=== PATIENT | female | born 1950 | race Caucasian/White ===

== ENCOUNTER 2020-06-16 09:55 | Day surgery (SDC) | payer MEDICARE, BC ==
[~2020-06-16 09:55] MED LIST: Lactated Ringers 1,000 ML IV SCH; Sodium Chloride 0.9% 10 ML SDV IV PRN; Sodium Chloride 0.9% 10 ML Syringe FLUSH PRN; Sodium Chloride 0.9% 2.5 ML Syringe FLUSH PRN
--- NOTE | 2020-06-16 10:29 | PCM.PREANE ---
Preanesthetic Assessment - Anesthesia/Transfusion/Family Hx Anesthesia History: Prior Anesthesia Without Reaction Family History of Anesthesia Reaction: No Transfusion History: No Prior Transfusion(s) - Review of Systems General: No Symptoms Pulmonary: No Symptoms Cardiovascular: No Symptoms Gastrointestinal: No Symptoms Neurological: No Symptoms Other: Reports: None - Physical Assessment NPO Status Date: 06/16/20 NPO Status Time: 00:01 Height: 5 ft 6 in Weight: 222 lb ASA Class: 2 Mental Status: Alert & Oriented x3 Airway Class: Mallampati = 2 Dentition: Reports: Normal Dentition ROM/Head Extension: Full Lungs: Clear to Auscultation, Normal Respiratory Effort Cardiovascular: Regular Rate, Regular Rhythm - Allergies Allergies/Adverse Reactions: Allergies Allergy/AdvReac Type Severity Reaction Status Date / Time Sulfa (Sulfonamide Allergy Hives Verified 06/13/20 12:38 Antibiotics) - Anesthesia Plan Pre-Op Medication Ordered: None - Acknowledgements Anesthesia Type Planned: General Anesthesia Pt an Appropriate Candidate for the Planned Anesthesia: Yes Alternatives and Risks of Anesthesia Discussed w Pt/Guardian: Yes Pt/Guardian Understands and Agrees with Anesthesia Plan: Yes Additional Comments: npo htn no cv problems obesity bmi 36 tob none etoh occ par no questions PreAnesthesia Questionnaire HEENT History: Reports: Cataract, Other (See Below) Other HEENT History: wears glasses Cardiovascular History: Reports: Hypertension Respiratory History: Reports: None Gastrointestinal History: Reports: Colon Polyp, Other (See Below) Other Gastrointestinal History: occasional heartburn- takes Tums Genitourinary History: Reports: None 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 Musculoskeletal History: Reports: None Neurological History: Reports: None Psychiatric History: Reports: None Endocrine/Metabolic History: Reports: Obesity/BMI 30+ Hematologic History: Reports: None Immunologic History: Reports: None Oncologic (Cancer) History: Reports: None Dermatologic History: Reports: None - Infectious Disease History Infectious Disease History: Reports: None - Past Surgical History Head Surgeries/Procedures: Reports: None HEENT Surgical History: Reports: Cataract Surgery, Other (See Below) Other HEENT Surgeries/Procedures: bilateral Tympanoplasty Cardiovascular Surgical History: Reports: None GI Surgical History: Reports: Colonoscopy Female Surgical History: Reports: None Endocrine Surgical History: Reports: None Musculoskeletal Surgical History: Reports: Other (See Below) Other Musculoskeletal Surgeries/Procedures:: repair of median nerve - SUBSTANCE USE Tobacco Use Status *Q: Never Tobacco User Days Per Week of Alcohol Use: 3 Recreational Drug Use History: No - HOME MEDS Home Medications: Home Meds amLODIPine [Norvasc] 5 mg PO BEDTIME 11/17/14 [History] Ascorbic Acid [Vitamin C] 1,000 mg PO DAILY 06/13/20 [History] Cholecalciferol (Vitamin D3) [Vitamin D3] 5,000 unit PO DAILY 06/13/20 [History] Propylene Glycol/PEG 400/Pf [Systane 0.3-0.4% Eye Drop] 1 drop EYEBOTH ASDIRECTED PRN 06/13/20 [History] Zinc 25 mg PO DAILY 06/13/20 [History] - CURRENT (IN HOUSE) MEDS Current Meds: Current Medications Lactated Ringer's (Ringers, Lactated) 1,000 mls @ 125 mls/hr IV ASDIRECTED VLADIMIR Sodium Chloride (Sodium Chloride 0.9% 10 Ml Syringe) 10 ml FLUSH ASDIRECTED PRN PRN Reason: Keep Vein Open Sodium Chloride (Sodium Chloride 0.9% 2.5 Ml Syringe) 2.5 ml FLUSH ASDIRECTED PRN PRN Reason: Keep Vein Open Sodium Chloride (Sodium Chloride 0.9% 10 Ml Syringe) 10 ml FLUSH ASDIRECTED PRN PRN Reason: Keep Vein Open Sodium Chloride (Sodium Chloride 0.9% 2.5 Ml Syringe) 2.5 ml FLUSH ASDIRECTED PRN PRN Reason: Keep Vein Open Sodium Chloride (Sodium Chloride 0.9% 10 Ml Sdv) 10 ml IV ASDIRECTED PRN PRN Reason: IV Use
[2020-06-16] MEDS ORDERED: Propofol 200 MG/20 ML SDV ONE (11:09)
--- NOTE | 2020-06-16 12:25 | PCM.OPNOTE ---
- General Post-Op/Procedure Note Date of Surgery/Procedure: 06/16/20 Operative Procedure(s): Colonoscopy with biposy and polypectomy Findings: Large irregular mass @ 10cm (sigmoid rectum junction), sigmoid colon polyp, transverse colon polyp x 2 Pre Op Diagnosis: History of colon polyps Post-Op Diagnosis: Transverse colon polyp x 2, diverticulosis, sigmoid colon polyp, sigmoid colon mass Anesthesia Technique: MAC Primary Surgeon: Winnie Patel Condition: Good
--- NOTE | 2020-06-16 12:43 | PCM.POSTAN ---
POST ANESTHESIA ASSESSMENT - MENTAL STATUS Mental Status: Alert (no anesthetic problems), Oriented - VITAL SIGNS Vital Signs: Last Vital Signs Temp 97.7 F 06/16/20 10:05 Pulse 77 06/16/20 12:38 Resp 13 06/16/20 12:38 BP 156/75 H 06/16/20 12:38 Pulse Ox 99 06/16/20 12:38 - RESPIRATORY Respiratory Status: Respiratory Rate WNL, Airway Patent, O2 Saturation Stable - CARDIOVASCULAR CV Status: Pulse Rate WNL, Blood Pressure Stable - GASTROINTESTINAL GI Status: No Symptoms - POST OP HYDRATION Hydration Status: Adequate & Stable
--- NOTE | 2020-06-16 13:40 | PCM48HPAN ---
Post Anesthesia Note - EVALUATION WITHIN 48HRS OF ANESTHETIC Vital Signs in Normal Range: Yes Patient Participated in Evaluation: Yes Respiratory Function Stable: Yes Airway Patent: Yes Cardiovascular Function Stable: Yes Hydration Status Stable: Yes Pain Control Satisfactory: Yes Nausea and Vomiting Control Satisfactory: Yes Mental Status Recovered: Yes Vital Signs: Last Vital Signs Temp 36.5 C 06/16/20 10:05 Pulse 77 06/16/20 12:38 Resp 13 06/16/20 12:38 BP 156/75 H 06/16/20 12:38 Pulse Ox 99 06/16/20 12:38 - COMMENTS/OBSERVATIONS Free Text/Narrative:: Doing well, ready for discharge.
[2020-06-16 14:12] VITALS: BP 146/74; PULSE 74
--- NOTE | 2020-06-17 19:38 | OR ---
SURGEON: WINNIE PATEL MD DATE OF PROCEDURE: 06/16/2020 PREOPERATIVE DIAGNOSIS: History of colon polyps. POSTOPERATIVE DIAGNOSES: 1. Sigmoid colon polyp x1. 2. Transverse colon polyps x2. 3. Sigmoid colon mass at 10 cm. PROCEDURE PERFORMED: Diagnostic colonoscopy with polypectomy and biopsy. PRIMARY SURGEON: Winnie Patel MD ANESTHESIA: MAC. INSTRUMENT USED: Olympus colonoscope. EXTENT OF EXAM: To the cecum. PREPARATION: Good. LIMITATIONS: None. INDICATIONS FOR EXAMINATION: The patient is a 69-year-old female with a history of polyps. She is here for her 5 year followup scope. I explained the procedure, expected perioperative course, and the risks. She verbalized understanding and wishes to proceed. PROCEDURE IN DETAIL: The patient was brought to the endoscopy suite and placed in the left lateral decubitus position. A time-out was completed verifying the patient's name, age, date of , allergies, and procedure to be performed. Monitored anesthesia care was induced and continuous oxygen was provided via nasal cannula throughout the procedure. After adequate sedation was achieved, a digital rectal exam was performed. This exam was within normal limits. A well-lubricated colonoscope was inserted in the rectum and advanced under direct visualization to the level of the cecum. The cecum was identified by both visual and anatomic landmarks. A photograph was taken the cecal cap; however, I was unable to retroflex the scope within the cecum. The scope was then fully withdrawn while examining the color, texture, anatomy, and integrity of mucosa from the cecum to the anal canal. In the midportion of the transverse colon, the patient was noted to have 2 sessile polyps. These were removed in piecemeal fashion using cold biopsy forceps. In the mid sigmoid colon, the patient was noted to have another sessile small polyp. This was removed using cold biopsy forceps in piecemeal fashion. The patient was noted to have diverticulosis within the sigmoid colon as well. At the rectosigmoid junction at approximately 10 cm from the anus, the patient was noted to have a large sessile irregular-appearing mass. Multiple photographs of this were taken. Biopsies were taken and sent to Pathology, labeled as sigmoid colon mass. The scope was then brought into the rectum and retroflexed to allow visualization of the anal canal opening. This appeared normal, and a photograph taken. The scope was then straightened out and fully withdrawn. The cecum to anus time was 22 minutes. The patient tolerated the procedure well and was transferred to the PACU in stable condition. ENDOSCOPIC DIAGNOSES: 1. Sigmoid colon polyp x1. 2. Transverse colon polyps x2. 3. Sigmoid colon mass at 10 cm. RECOMMENDATIONS: I obtained a CEA level in the postoperative care area. This was mildly elevated at 4.8. I explained the intraoperative findings to the patient and showed her the pictures. I am concerned that this maybe a colon cancer. I will follow up on the biopsy results and discuss the next steps in treatment with her in clinic next week. ALANNA KAUR /[id number]
== END 2020-06-16 13:40 | disposition home or self-care (01) ==
LOC: MW.SDS 09:55
PROVIDERS: ATTEND Surgery
DX: C18.7 Malignant neoplasm of sigmoid colon (principal); D12.3 Benign neoplasm of transverse colon; D12.5 Benign neoplasm of sigmoid colon; K57.30 Diverticulosis of large intestine without perforation or abscess without bleeding; L29.0 Pruritus ani; L29.3 Anogenital pruritus, unspecified; I10 Essential (primary) hypertension; R73.03 Prediabetes; E66.9 Obesity, unspecified; Z68.36 Body mass index [BMI] 36.0-36.9, adult; Z88.2 Allergy status to sulfonamides; Z79.899 Other long term (current) drug therapy; Z86.010 Personal history of colon polyps; Z98.890 Other specified postprocedural states
CPT/HCPCS: 36415; 45380; 82378; 88305; J2704; J7120; 00811

== ENCOUNTER 2021-02-21 06:29 | Day surgery (SDC) | payer MEDICARE, BC ==
[~2021-02-21 06:29] MED LIST changes: -Sodium Chloride 0.9% 10 ML SDV IV PRN; +Sodium Chloride 0.9% 20 ML SDV IV PRN; +ceFAZolin 2 GM in Premix Bag 1 BAG IV ONE
--- NOTE | 2021-02-21 07:07 | PCM.PREANE ---
Preanesthetic Assessment - Procedure Proposed Procedure: Port-a-cath placement - Anesthesia/Transfusion/Family Hx Anesthesia History: Prior Anesthesia Without Reaction Family History of Anesthesia Reaction: No Transfusion History: No Prior Transfusion(s) - Review of Systems General: No Symptoms Pulmonary: No Symptoms Cardiovascular: No Symptoms (HTN) Gastrointestinal: No Symptoms (h/o Colorectal CA s/p partial resection and ileostomy) Neurological: No Symptoms Other: Reports: None - Physical Assessment NPO Status Date: 02/20/21 NPO Status Time: 22:00 Vital Signs: Last Vital Signs Temp 97.7 F 02/21/21 06:52 Pulse 98 02/21/21 06:52 Resp 14 02/21/21 06:52 BP 124/84 02/21/21 06:52 Pulse Ox 96 02/21/21 06:52 Height: 5 ft 6 in Weight: 93.44 kg ASA Class: 2 Mental Status: Alert & Oriented x3 Airway Class: Mallampati = 3 Dentition: Reports: Normal Dentition Thyro-Mental Finger Breadths: 3 Mouth Opening Finger Breadths: 3 ROM/Head Extension: Full Lungs: Clear to Auscultation, Normal Respiratory Effort Cardiovascular: Regular Rate, Regular Rhythm - Allergies Allergies/Adverse Reactions: Allergies Allergy/AdvReac Type Severity Reaction Status Date / Time Sulfa (Sulfonamide Allergy Hives Verified 02/15/21 09:10 Antibiotics) - Acknowledgements Anesthesia Type Planned: General Anesthesia Pt an Appropriate Candidate for the Planned Anesthesia: Yes Alternatives and Risks of Anesthesia Discussed w Pt/Guardian: Yes Pt/Guardian Understands and Agrees with Anesthesia Plan: Yes PreAnesthesia Questionnaire HEENT History: Reports: Cataract, Other (See Below) Other HEENT History: wears glasses Cardiovascular History: Reports: Hypertension Respiratory History: Reports: None Gastrointestinal History: Reports: Colon Polyp, Diverticulosis, Other (See Below) Other Gastrointestinal History: rectal cancer-stage III Genitourinary History: Reports: None 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 Musculoskeletal History: Reports: None Neurological History: Reports: None Psychiatric History: Reports: None Endocrine/Metabolic History: Reports: Obesity/BMI 30+ Hematologic History: Reports: None Immunologic History: Reports: None Oncologic (Cancer) History: Reports: Colon Dermatologic History: Reports: None - Infectious Disease History Infectious Disease History: Reports: None - Past Surgical History Head Surgeries/Procedures: Reports: None HEENT Surgical History: Reports: Cataract Surgery, Other (See Below) Other HEENT Surgeries/Procedures: left ear surgery Cardiovascular Surgical History: Reports: None Respiratory Surgical History: Reports: None GI Surgical History: Reports: Colon, Colonoscopy, Colostomy Other GI Surgeries/Procedures: laparoscopic proctocolectomy with diverting ileostomy Female Surgical History: Reports: None Endocrine Surgical History: Reports: None Neurological Surgical History: Reports: None Musculoskeletal Surgical History: Reports: Other (See Below) Other Musculoskeletal Surgeries/Procedures:: repair of median nerve-left wrist Oncologic Surgical History: Reports: Other (See Below) Other Oncologic Surgeries/Procedures: colon resection with diverting ileostomy Dermatological Surgical History: Reports: None - SUBSTANCE USE Tobacco Use Status *Q: Never Tobacco User - HOME MEDS Home Medications: Home Meds amLODIPine [Norvasc] 5 mg PO BEDTIME 11/17/14 [History] Propylene Glycol/PEG 400/Pf [Systane 0.3-0.4% Eye Drop] 1 drop EYEBOTH ASDIRECTED PRN 06/13/20 [History] Acetaminophen [Tylenol Extra Strength] 2 tab PO ASDIRECTED PRN 02/15/21 [History] Lactose-Reduced Food [Ensure] 1 dose PO DAILY 02/15/21 [History] - CURRENT (IN HOUSE) MEDS Current Meds: Current Medications Lactated Ringer's (Ringers, Lactated) 1,000 mls @ 125 mls/hr IV ASDIRECTED VLADIMIR Sodium Chloride (Sodium Chloride 0.9% 2.5 Ml Syringe) 2.5 ml FLUSH ASDIRECTED PRN PRN Reason: Keep Vein Open Sodium Chloride (Sodium Chloride 0.9% 20 Ml Sdv) 10 ml IV ASDIRECTED PRN PRN Reason: IV Use Sodium Chloride (Sodium Chloride 0.9% 10 Ml Syringe) 10 ml FLUSH ASDIRECTED PRN PRN Reason: Keep Vein Open Discontinued Medications Cefazolin Sodium/Dextrose 2 gm (/ Premix) 50 mls @ 100 mls/hr IV ONETIME ONE Stop: 02/20/21 12:39
[2021-02-21] MEDS ORDERED: Iopamidol 408 MG/ML 20 ML SDV ONE (07:20)
[2021-02-21] MEDS ORDERED: Bupivacaine 0.5% 10 ML SDV ONE (07:20)
[2021-02-21] MEDS ORDERED: Octyl 2-Cyanoacrylate 1 Tube ONE (07:20)
[2021-02-21] MEDS ORDERED: Heparin Sodium 100 Units/ML 3 ML Syringe ONE (07:20)
[2021-02-21] MEDS ORDERED: Dexamethasone 4 MG/ML 5 ML MDV ONE (07:29)
[2021-02-21] MEDS ORDERED: fentaNYL 100 MCG/2 ML SDV ONE (07:29)
[2021-02-21] MEDS ORDERED: Midazolam 1 MG/ML 2 ML SDV ONE (07:29)
[2021-02-21] MEDS ORDERED: Propofol 200 MG/20 ML SDV ONE (07:29)
[2021-02-21] MEDS ORDERED: Ondansetron 4 MG/2 ML SDV ONE (07:29)
[2021-02-21] MEDS ORDERED: Promethazine 25 MG/ML SDV ONE (07:44)
--- NOTE | 2021-02-21 09:16 | PCM.OPNOTE ---
- General Post-Op/Procedure Note Date of Surgery/Procedure: 02/21/21 Operative Procedure(s): Right internal jugular port a cath placement Findings: Right internal jugular port a cath placement Pre Op Diagnosis: Rectal cancer Post-Op Diagnosis: same Anesthesia Technique: General LMA, Local Primary Surgeon: Winnie Patel Fluid Replacement, Intraop: 700 EBL in mLs: 5 Condition: Good
--- NOTE | 2021-02-21 09:18 | PCM.POSTAN ---
POST ANESTHESIA ASSESSMENT - MENTAL STATUS Mental Status: Somnolent - VITAL SIGNS Vital Signs: Last Vital Signs Temp 97.7 F 02/21/21 06:52 Pulse 98 02/21/21 06:52 Resp 14 02/21/21 06:52 BP 124/84 02/21/21 06:52 Pulse Ox 96 02/21/21 06:52 - RESPIRATORY Respiratory Status: Respiratory Rate WNL, Airway Patent, O2 Saturation Stable - CARDIOVASCULAR CV Status: Pulse Rate WNL, Blood Pressure Stable - GASTROINTESTINAL GI Status: No Symptoms - PAIN Free Text/Narrative:: Resting comfortably - POST OP HYDRATION Hydration Status: Adequate & Stable
--- NOTE | 2021-02-21 09:29 | PCM48HPAN ---
Post Anesthesia Note - EVALUATION WITHIN 48HRS OF ANESTHETIC Vital Signs in Normal Range: Yes Patient Participated in Evaluation: Yes Respiratory Function Stable: Yes Airway Patent: Yes Cardiovascular Function Stable: Yes Hydration Status Stable: Yes Pain Control Satisfactory: Yes Nausea and Vomiting Control Satisfactory: Yes Mental Status Recovered: Yes Vital Signs: Last Vital Signs Temp 42.8 F L 02/21/21 09:11 Pulse 70 02/21/21 09:17 Resp 13 02/21/21 09:17 BP 86/46 L 02/21/21 09:17 Pulse Ox 99 02/21/21 09:17 - COMMENTS/OBSERVATIONS Free Text/Narrative:: Pt doing well post-op. VSS. No apparent anesthetic complications. Dr. Ant Saldana
--- NOTE | 2021-02-21 10:01 | OR ---
SURGEON: WINNIE PATEL MD DATE OF PROCEDURE: 02/21/2021 PREOPERATIVE DIAGNOSIS: Rectal cancer. POSTOPERATIVE DIAGNOSIS: Rectal cancer. PROCEDURE PERFORMED: Right internal jugular Port-A-Cath placement. PRIMARY SURGEON: Winnie Patel MD ANESTHESIA: General LMA, local. FLUIDS: 700 mL crystalloid. ESTIMATED BLOOD LOSS: 5 mL. FINDINGS: Uncomplicated placement of a right internal jugular Port-A-Cath. COMPLICATIONS: None. INDICATIONS: The patient is a 70-year-old female who has rectal cancer. She is in need of a Port-A-Cath for chemotherapy. I explained the procedure, expected perioperative course, and the risks. She verbalized understanding and wishes to proceed. PROCEDURE IN DETAIL: The patient was brought into the OR and placed on the OR table in supine position. A time-out was completed verifying the patient's name, age, date of , allergies, and procedure to be performed. An ultrasound was used to verify the anatomy of the right side of the neck. General LMA anesthesia was induced. A shoulder roll was placed behind the patient's shoulders, and both arms were tucked to the side. The neck and chest were prepped and draped in usual standard fashion. The patient was placed into Trendelenburg position. Using a sterile ultrasound probe, I re-identified the vascular anatomy of the right side of the neck. I anesthetized the area overlying the right internal jugular vein with 0.5% Marcaine plain mixed with 1% lidocaine plain in a 1:1 mixture. I also anesthetized the tunneling tract as well as the anterior chest wall on the right side with the same mixture. A #11 blade was used to make a joanna in the skin overlying the right internal jugular vein. Using ultrasound guidance, a needle was placed into the right internal jugular vein. A good return of venous blood was noted. A guidewire was placed down the vein into the superior vena cava. This was confirmed using intraoperative fluoro. The guidewire was then secured to the chest wall site, and I turned my attention to the right anterior chest wall. Two fingerbreadths below the right lateral clavicle, I chose my site for the Port-A-Cath. A #15 blade was used to make a 3- 4 cm incision on the skin. Cautery was used to dissect down to the level of subcutaneous fat, and I created a subcutaneous pocket for the port to rest in. I then used a tunneling device to tunnel the catheter tubing from the chest wall site up to the neck insertion site. A vascular sheath and dilator were then placed over the guidewire, and using fluoroscopic guidance, I dilated up my vascular tract. The guidewire and dilator were removed leaving the vascular sheath in place. The catheter tubing was placed down this vascular sheath into the superior vena cava. The vascular sheath was peeled away. I then pulled the catheter tubing into the distal SVC. An x-ray of this was taken and saved. The catheter tubing was then accessed distally and had a good return of venous blood. The catheter tubing was flushed with injectable saline. I then trimmed the catheter tubing to 22 cm and placed it on the Port-A-Cath device. The port was then placed into the chest wall. I accessed the Port-A-Cath device and had a good return of venous blood. The port and catheter tubing were then locked with 4 mL of heparinized saline. The catheter was secured on either side using interrupted 2-0 Prolene sutures. The chest wall pocket was then closed with a running 3-0 Vicryl suture in the subcutaneous fat layer, and the skin was closed with a running 4-0 Monocryl stitch. The insertion site on the neck was closed with an interrupted 4-0 Monocryl suture. Dermabond and sterile dressings were applied. The patient tolerated the procedure well, was flattened, extubated, taken to PACU, and a chest x-ray taken there. This chest x-ray shows no acute complications. The patient tolerated the procedure well. All counts were complete and correct at the end of the case. ALANNA KAUR /[id number] RAMBO
[2021-02-21 10:05] VITALS: BP 134/62; PULSE 64
--- NOTE | 2021-02-21 10:18 | CR ---
INDICATION: Post port placement. COMPARISON: 06/23/2020 TECHNIQUE: Single-view portable study FINDINGS: TUBES AND LINES: Right IJ port ending in the SVC distally HEART AND MEDIASTINUM: The heart size is normal. The mediastinal contour appears normal for patient age. LUNGS AND PLEURAL SPACES: The lungs appear normal.The pleural spaces are unremarkable. OSSEOUS STRUCTURES: Age-appropriate appearance. No acute focal finding. IMPRESSION: Right IJ port ending in the distal SVC. No pleural effusion or pneumothorax. Dictated by Stone Irby MD @ 02/21/2021 10:16:47 AM (Electronically Signed)
--- NOTE | 2021-02-21 13:39 | CR ---
HISTORY: Port placement. TECHNIQUE: Intraoperative fluoroscopy by surgical service. 23 seconds fluoroscopy time. One image. FINDINGS: Port with catheter tip in the low SVC. Dictated by Redd Gonzales MD @ 02/21/2021 1:39:01 PM (Electronically Signed)
== END 2021-02-21 10:23 | disposition home or self-care (01) ==
LOC: MW.SDS 06:29
PROVIDERS: ATTEND Surgery
DX: C20 Malignant neoplasm of rectum (principal); C77.5 Secondary and unspecified malignant neoplasm of intrapelvic lymph nodes; J93.83 Other pneumothorax; I10 Essential (primary) hypertension; E55.9 Vitamin D deficiency, unspecified; Z88.2 Allergy status to sulfonamides; Z98.890 Other specified postprocedural states; Z79.899 Other long term (current) drug therapy
CPT/HCPCS: 36561; 71045; 76000; A9270; C1788; J0690; J1100; J1642; J2250; J2405; J2704; J3010; J3490; J7120; 00532; Q9966

== ENCOUNTER 2022-01-04 10:42 | Day surgery (SDC) | payer MEDICARE, BC ==
[~2022-01-04 10:42] MED LIST changes: -ceFAZolin 2 GM in Premix Bag 1 BAG IV ONE
[2022-01-04] MEDS ORDERED: Propofol 200 MG/20 ML SDV ONE (11:37)
[2022-01-04] MEDS ORDERED: Midazolam 1 MG/ML 2 ML SDV ONE (11:40)
[2022-01-04] MEDS ORDERED: fentaNYL 100 MCG/2 ML SDV ONE (11:40)
[2022-01-04] MEDS ORDERED: Lidocaine 1% 50 ML MDV ONE (11:50)
[2022-01-04] MEDS ORDERED: Bupivacaine 0.5% 30 ML SDV ONE (11:50)
[2022-01-04] MEDS ORDERED: Lidocaine 1% 20 ML MDV ONE (11:51)
[2022-01-04] MEDS ORDERED: cefOXitin 1 GM Vial ONE (11:57)
[2022-01-04] MEDS ORDERED: Phenylephrine HCl In 0.9% NaCl 1 MG/10 ML Vial ONE (12:32)
[2022-01-04] MEDS ORDERED: ePHEDrine 50 MG/ML SDV ONE (12:32)
[2022-01-04 13:32] VITALS: BP 128/61; PULSE 78
== END 2022-01-04 13:20 | disposition home or self-care (01) ==
LOC: MW.SDS 10:42
PROVIDERS: ATTEND Surgery
DX: Z12.11 Encounter for screening for malignant neoplasm of colon (principal); Z45.2 Encounter for adjustment and management of vascular access device; K57.30 Diverticulosis of large intestine without perforation or abscess without bleeding; J30.9 Allergic rhinitis, unspecified; I10 Essential (primary) hypertension; G47.00 Insomnia, unspecified; E55.9 Vitamin D deficiency, unspecified; E66.9 Obesity, unspecified; M85.80 Other specified disorders of bone density and structure, unspecified site; Z88.0 Allergy status to penicillin; Z85.048 Personal history of other malignant neoplasm of rectum, rectosigmoid junction, and anus; Z79.899 Other long term (current) drug therapy; Z98.890 Other specified postprocedural states; Z95.828 Presence of other vascular implants and grafts; Z68.31 Body mass index [BMI] 31.0-31.9, adult; Z88.2 Allergy status to sulfonamides
CPT/HCPCS: 36590; 45378; J0694; J2250; J2704; J3010; J3490; J7120; 00811; 99100; J2001